=== PATIENT | female | born 1985 | race Caucasian/White ===

== ENCOUNTER → 2017-07-13 | Day surgery (SDC) | payer OTHER ==
[~2017-07-13] MED LIST: OMEPRAZOLE40 MG PO; ZANTAC300 MG PO
== END | disposition home or self-care (01) ==
LOC: CIR.AMB 10:49
DX: O02.1 Missed abortion (principal)

== ENCOUNTER 2018-01-02 11:39 | Outpatient (CLI) | payer OTHER | END 2018-01-02 11:54 | disposition home or self-care (01) | LOC: SONOGRAMA 11:39 | DX: N92.6 Irregular menstruation, unspecified (principal); E04.1 Nontoxic single thyroid nodule ==

== ENCOUNTER 2018-04-19 08:42 | Outpatient (CLI) | payer OTHER | END 2018-04-19 09:07 | disposition home or self-care (01) | LOC: MRI 08:42 | DX: G44.219 Episodic tension-type headache, not intractable (principal); G43.009 Migraine without aura, not intractable, without status migrainosus | CPT/HCPCS: 70551 ==

== ENCOUNTER 2018-09-16 10:34 | Outpatient (CLI) | payer OTHER | END 2018-09-16 10:42 | disposition home or self-care (01) | LOC: SONOGRAMA 10:34 → MAMO-SONO 11:15 | DX: N91.2 Amenorrhea, unspecified (principal) ==

== ENCOUNTER 2018-10-31 07:55 | Outpatient (CLI) | payer OTHER | END 2018-10-31 10:09 | disposition home or self-care (01) | LOC: LAB 07:55 | DX: E04.2 Nontoxic multinodular goiter (principal); E27.0 Other adrenocortical overactivity; M06.1 Adult-onset Still's disease; I11.0 Hypertensive heart disease with heart failure; E04.0 Nontoxic diffuse goiter; N39.0 Urinary tract infection, site not specified; R53.83 Other fatigue; E06.3 Autoimmune thyroiditis; J30.89 Other allergic rhinitis ==

== ENCOUNTER 2019-09-10 14:15 | Inpatient (IN) | payer OTHER ==
[~2019-09-10] VITALS: Ht 154.9 cm; Wt 3.2 kg
[2019-09-13] MEDS ORDERED: PRENATAL TABLE1 EAC1 PO (09:53)
[2019-09-14] MEDS ORDERED: ATABEX OB TABL1 EACH (07:55)
== END 2019-09-15 14:13 | disposition home or self-care (01) | DRG 788 ==
LOC: OB/GYN 09-13 07:00
PROVIDERS: ADMIT Obstetrics & Gynecology
PROC: 4A1HXCZ Monitoring of Products of Conception, Cardiac Rate, External Approach (ICD-10-PCS; 2019-09-13)
PROC: 10D00Z1 Extraction of Products of Conception, Low, Open Approach (ICD-10-PCS; principal; 2019-09-13 07:00)
DX: O34.211 Maternal care for low transverse scar from previous cesarean delivery (principal); Z3A.39 39 weeks gestation of pregnancy; Z37.0 Single live birth

== ENCOUNTER 2021-02-04 14:35 | Outpatient (CLI) | payer OTHER ==
[~2021-02-04 14:35] MED LIST changes: +ATABEX OB TABL1 EACH; +PRENATAL TABLE1 EAC1 PO
== END 2021-02-04 14:48 | disposition home or self-care (01) ==
LOC: SONOGRAMA 14:35 → MAMO-SONO 14:45 → SONOGRAMA 14:48
PROVIDERS: ATTEND Obstetrics & Gynecology
DX: N80.8 Other endometriosis (principal)

== ENCOUNTER 2023-12-23 10:24 | Outpatient (CLI) | payer OTHER | END 2023-12-23 10:30 | disposition home or self-care (01) | LOC: RAD 10:24 | PROVIDERS: ATTEND Chiropractor | DX: M99.01 Segmental and somatic dysfunction of cervical region (principal); M99.02 Segmental and somatic dysfunction of thoracic region; M99.03 Segmental and somatic dysfunction of lumbar region; M99.04 Segmental and somatic dysfunction of sacral region; M99.05 Segmental and somatic dysfunction of pelvic region ==

== ENCOUNTER 2024-05-21 12:01 | Outpatient (CLI) | payer OTHER | END 2024-05-21 12:11 | disposition home or self-care (01) | LOC: TOM 12:01 | PROVIDERS: ATTEND Psychiatry & Neurology Neurology | DX: G44.219 Episodic tension-type headache, not intractable (principal); G43.009 Migraine without aura, not intractable, without status migrainosus ==